=== PATIENT | male | born 1950 | race Caucasian/White ===

== ENCOUNTER 2016-08-03 18:26 | Emergency (ER) | payer MEDICARE, OTHER ==
[~2016-08-03 18:26] MED LIST: ADVA250A INH; ALBU0.086 INH; CLON.2 PO; CREON6 PO; FLOR250C PO; FLUO20TA20 PO; LACT20SO4 PO; NICO7DIS2 TD; SPIR50TA PO; TAB-TAB PO; TRAZ50TA4 PO
[2016-08-03 19:44] VITALS: BP 97/51; PULSE 57; RESP 18; TEMP 98.4; O2SAT 98
--- NOTE | 2016-08-03 19:44 | PD ---
HPI Chief Complaint: Psychiatric Symptoms Time Seen by Provider: 19:28 Travel History International Travel<30 days: No Contact w/Intl Traveler<30days: No Traveled to known affect area: No History of Present Illness HPI This is a 66-year-old male who reports a history of hypertension, hepatitis C with cirrhosis, COPD, IV drug abuse, he presents under Hsu act initiated by the Police Department. According to his paperwork, "subject stated that he wants to kill himself and needs help." The patient reports that he has been feeling depressed for years, occasionally has thoughts of suicide. He reports that he has been abusing drugs, is frequently morphine and Dilaudid, for approximately 18 years. He reports that 2 days ago he overdosed on opiates and was brought to [facility]. He was discharged yesterday. He reports that today he called the police because he has been feeling depressed. The patient was initially brought to [facility] however because of his chronic medical conditions he was felt to be beyond their scope of care so he was brought here. The patient has areas of ecchymosis and scabbing on the forearms where he previously injected drugs. Last tetanus vaccination he claims was 2 days ago. He denies any homicidal ideation, hallucinations. He has no other complaints at this time. [facility] Past Medical History Arthritis: Yes Asthma: Yes Anxiety: Yes Depression: Yes Heart Rhythm Problems: Yes Cancer: No Cardiovascular Problems: No High Cholesterol: No Chest Pain: No Congestive Heart Failure: No Cirrhosis: Yes COPD: No Cerebrovascular Accident: No Diminished Hearing: No Endocrine: No Gastrointestinal Disorders: Yes GERD: Yes Genitourinary: No Headaches: Yes Hepatitis: Yes (HEP B AND C) Hiatal Hernia: No Hypertension: Yes Immune Disorder: No Musculoskeletal: Yes Neurologic: Yes (PREVIOUS sucarhnoidal brain bleeing - head trauma) Psychiatric: Yes Reproductive: No Respiratory: Yes (ASTHMA) Migraines: No Seizures: No Sleep Apnea: No Thyroid Disease: No Ulcer: No ?: Not Past Surgical History Abdominal Surgery: Yes (splenectomy) Cardiac Surgery: No Cholecystectomy: Yes Ear Surgery: No Endocrine Surgery: No Eye Surgery: Yes Genitourinary Surgery: No Gynecologic Surgery: No Joint Replacement: No Neurologic Surgery: Yes (CRANIOTOMY) Oral Surgery: Yes (TONSILLECTOMY) Pacemaker: No Thoracic Surgery: No Tonsillectomy: Yes Other Surgery: Yes (left foot 4th and 5th toe amputation) Social History Alcohol Use: No Tobacco Use: Yes Substance Use: No Allergies-Medications (Allergen,Severity, Reaction): Coded Allergies: Bactrim (Verified Allergy, Severe, Hives, 09/05/14) Cipro (Verified Allergy, Severe, RASH, 09/05/14) Reported Meds & Prescriptions Reported Meds & Active Scripts Active Reported Trazodone Hcl (Trazodone HCl) 50 Mg Tab 50 Mg PO Florastor (Saccharomyces Boulardii) 250 Mg Cap 250 Mg PO BID Fluoxetine (Fluoxetine HCl) 20MG Cap 20 Mg PO DAILY Catapres 0.2 mg (Clonidine HCl) 0.2 Mg Tab 0.2 Tab PO BID Creon (Amylase/Lipase/Protease) 6,000 Unit Cap 1 Cap PO TID Lactulose 30 Ml Syrp 15 Ml PO TID Nicotine 7 Mg/24 Hr Dis 1 Patch TD DAILY Advair Diskus 250/50 (Salmeterol Xinafoate/Fluticasone) 250 Mcg/50 Mcg Inhp 1 Puff INH DAILY Proventil Ud 0.083% (2.5 Mg/3 Ml) (Albuterol Sulfate) 2.5 Mg/3 Ml Inha 2.5 Mg INH DIRECTED Aldactone (Spironolactone) 50 Mg Tab 50 Mg PO DAILY Multivitamin (Multivitamins) 1 Tab Tab 1 Tab PO DAILY Review of Systems Except as stated in HPI: all other systems reviewed are Neg Physical Exam Narrative GENERAL: Disheveled appearing male in no acute distress, answering questions appropriately SKIN: Warm and dry. Areas of ecchymosis noted on the arms, some circular scabbing lesions noted as well. There is no induration or erythema of the skin , no proximal streaking, formation. HEAD: Atraumatic. Normocephalic. EYES: Pupils equal and round. No scleral icterus. No injection or drainage. ENT: No nasal bleeding or discharge. Mucous membranes pink and moist. NECK: Trachea midline. No JVD. CARDIOVASCULAR: Regular rate and rhythm. No murmur appreciated. RESPIRATORY: No accessory muscle use. Some wheezing noted bilaterally. GASTROINTESTINAL: Abdomen soft, distended consistent with ascites, linear surgical scar noted from previous splenomegaly per patient, hepatomegaly noted. MUSCULOSKELETAL: No obvious deformities. No clubbing. No cyanosis. No edema. NEUROLOGICAL: Awake and alert. No obvious cranial nerve deficits. Motor grossly within normal limits. Normal speech. PSYCHIATRIC: depressed mood; insight and judgment normal. Data Data Last Documented VS Vital Signs Date Time Temp Pulse Resp B/P Pulse Ox O2 Delivery O2 Flow Rate FiO2 08/03/16 20:12 97.6 54 18 117/65 96 Room Air Orders Complete Blood Count With Diff (08/03/16 19:16) Comprehensive Metabolic Panel (08/03/16 19:16) Psych Screen (08/03/16 19:16) Drug Screen, Random Urine (08/03/16 19:16) Alcohol (Ethanol) (08/03/16 19:16) Albuterol-Ipratropium Neb (Duoneb Neb) (08/03/16 19:45) Labs Laboratory Tests Test 08/03/16 19:45 White Blood Count 3.5 TH/MM3 Red Blood Count 4.02 MIL/MM3 Hemoglobin 12.3 GM/DL Hematocrit 36.2 % Mean Corpuscular Volume 90.1 FL Mean Corpuscular Hemoglobin 30.7 PG Mean Corpuscular Hemoglobin 34.1 % Concent Red Cell Distribution Width 17.5 % Platelet Count 45 TH/MM3 Mean Platelet Volume 10.0 FL Neutrophils (%) (Auto) 66.2 % Lymphocytes (%) (Auto) 20.2 % Monocytes (%) (Auto) 9.9 % Eosinophils (%) (Auto) 2.7 % Basophils (%) (Auto) 1.0 % Neutrophils # (Auto) 2.3 TH/MM3 Lymphocytes # (Auto) 0.7 TH/MM3 Monocytes # (Auto) 0.3 TH/MM3 Eosinophils # (Auto) 0.1 TH/MM3 Basophils # (Auto) 0.0 TH/MM3 CBC Comment AUTO DIFF Differential Comment AUTO DIFF CONFIRMED Platelet Estimate LOW Platelet Morphology Comment ENLARGED Red Cell Morphology Comment NORMAL Sodium Level 136 MEQ/L Potassium Level 3.5 MEQ/L Chloride Level 102 MEQ/L Carbon Dioxide Level 26.4 MEQ/L Anion Gap 8 MEQ/L Blood Urea Nitrogen 5 MG/DL Creatinine 0.74 MG/DL Estimat Glomerular Filtration 106 ML/MIN Rate Random Glucose 78 MG/DL Calcium Level 8.2 MG/DL Total Bilirubin 2.0 MG/DL Aspartate Amino Transf 159 U/L (AST/SGOT) Alanine Aminotransferase 47 U/L (ALT/SGPT) Alkaline Phosphatase 169 U/L Total Protein 6.8 GM/DL Albumin 2.5 GM/DL Urine Opiates Screen NEG Urine Barbiturates Screen NEG Urine Amphetamines Screen NEG Urine Benzodiazepines Screen NEG Urine Cocaine Screen NEG Urine Cannabinoids Screen NEG Ethyl Alcohol Level 118 MG/DL [facility] Medical Decision Making Medical Screen Exam Complete: Yes Emergency Medical Condition: Yes Medical Record Reviewed: Yes Differential Diagnosis Substance-induced disorder, opiate withdrawal, acute psychosis, major depressive disorder, malingering, depressive disorder not otherwise specified Narrative Course 66-year-old male with history of hepatitis C with cirrhosis, long-standing history of IV drug abuse, presents under [facility] for evaluation of depression and suicidal thoughts. On examination he has areas of ecchymosis and scabbing on the arm secondary to IV drug abuse with no evidence of infectious changes. He also has wheezing which is likely chronic secondary to his COPD, denies any acute dyspnea. He'll be given a DuoNeb treatment here. Records from his recent visit to [facility] have been requested. Basic lab work has been ordered. Mental health screening discussed with the patient. Psychiatric screen ordered. Lab work has been reviewed. Platelet count 45, bilirubin 2.0, AST 159, albumin 2.5 consistent with history of cirrhosis. Drug screen is negative. Alcohol level is 118. The patient is medically cleared for psychiatric disposition. Diagnosis Primary Impression: Depression Qualified Code: F32.9 - Depression, unspecified depression type Additional Impression: Opiate abuse, continuous Bonifacio Caruso Aug 03, 2016 19:44 Bonifacio Caruso Aug 03, 2016 19:44
[2016-08-03] MEDS ORDERED: RESP: ALBUTEROL 2.5 MG/IPRATROPIUM 0.5 MG NEB (SCH) INH ONE (19:45)
[2016-08-03 20:01] LABS: AUTOMATED NEUTROPHIL # 2.3 TH/MM3 (1.8-7.7); EOSINOPHIL # 0.1 TH/MM3 (0-0.4); EOSINOPHIL % 2.7 % (0.0-4.0); HEMATOCRIT 36.2 % (39.0-51.0); LYMPH % 20.2 % (9.0-44.0); LYMPHOCYTE # 0.7 TH/MM3 (1.0-4.8); MEAN CELL VOLUME 90.1 FL (80.0-100.0); MEAN CORPUSCULAR HEMOGLOBIN 30.7 PG (27.0-34.0); MEAN CORPUSCULAR HGB CONC 34.1 % (32.0-36.0); MONO % 9.9 % (0.0-8.0); NEUT % 66.2 % (16.0-70.0); PLATELET COUNT 45 TH/MM3 (150-450); RED BLOOD COUNT 4.02 MIL/MM3 (4.50-5.90); RED CELL DISTRIBUTION WIDTH 17.5 % (11.6-17.2); WHITE BLOOD COUNT 3.5 TH/MM3 (4.0-11.0)
[2016-08-03 20:05] LABS: HEMO FLAGS AUTO DIFF
[2016-08-03 20:10] LABS: AMPHETAMINE, URINE NEG (NEG); BARBITURATES, URINE NEG (NEG); COCAINE, URINE NEG (NEG); PLATELET ESTIMATE SMEAR LOW (NORMAL); PLATELET MORPHOLOGY ENLARGED (NORMAL)
[2016-08-03 20:11] LABS: SCAN/DIFF AUTO DIFF CONFIRMED
[2016-08-03 20:12] VITALS: BP 117/65; PULSE 54; RESP 18; TEMP 97.6; O2SAT 96
[2016-08-03 20:22] LABS: ANION GAP 8 MEQ/L (5-15)
[2016-08-03 20:25] LABS: ALKALINE PHOSPHATASE 169 U/L (45-117); ALT (GPT) 47 U/L (12-78); AST (GOT) 159 U/L (15-37); BICARBONATE 26.4 MEQ/L (21.0-32.0); BLOOD UREA NITROGEN 5 MG/DL (7-18); CHLORIDE 102 MEQ/L (98-107); GLOMERULAR FILTRATION RATE 106 ML/MIN (>89); POTASSIUM 3.5 MEQ/L (3.5-5.1); SODIUM (NA) 136 MEQ/L (136-145)
[2016-08-03 20:30] VITALS: BP 113/55; PULSE 62; RESP 18; O2SAT 95
--- NOTE | 2016-08-03 20:34 | PD ---
Physical Exam Date Seen by Provider: Aug 03, 2016 Narrative Patient was sent to us from [facility] for medical clearance regarding alcohol and drug abuse. They felt that he was too sick for their pod and sent him to us. He actually started at [facility] but was sent here for medical clearance because of his chronic medical problems related to his chronic alcoholism. Patient reports 3 overdoses in the last week. He has required some sort of resuscitation as a result of at least one of these overdoses. Patient states that he does not want to and is requesting help with his substance abuse. The substance abuse is an ongoing problem that has become acutely worse this past week which is severe in that he required resuscitation. Data Data Last Documented VS Vital Signs Date Time Temp Pulse Resp B/P Pulse Ox O2 Delivery O2 Flow Rate FiO2 08/03/16 20:12 97.6 54 18 117/65 96 Room Air Orders Complete Blood Count With Diff (08/03/16 19:16) Comprehensive Metabolic Panel (08/03/16 19:16) Psych Screen (08/03/16 19:16) Drug Screen, Random Urine (08/03/16 19:16) Alcohol (Ethanol) (08/03/16 19:16) Albuterol-Ipratropium Neb (Duoneb Neb) (08/03/16 19:45) Labs Laboratory Tests Test 08/03/16 19:45 White Blood Count 3.5 TH/MM3 Red Blood Count 4.02 MIL/MM3 Hemoglobin 12.3 GM/DL Hematocrit 36.2 % Mean Corpuscular Volume 90.1 FL Mean Corpuscular Hemoglobin 30.7 PG Mean Corpuscular Hemoglobin 34.1 % Concent Red Cell Distribution Width 17.5 % Platelet Count 45 TH/MM3 Mean Platelet Volume 10.0 FL Neutrophils (%) (Auto) 66.2 % Lymphocytes (%) (Auto) 20.2 % Monocytes (%) (Auto) 9.9 % Eosinophils (%) (Auto) 2.7 % Basophils (%) (Auto) 1.0 % Neutrophils # (Auto) 2.3 TH/MM3 Lymphocytes # (Auto) 0.7 TH/MM3 Monocytes # (Auto) 0.3 TH/MM3 Eosinophils # (Auto) 0.1 TH/MM3 Basophils # (Auto) 0.0 TH/MM3 CBC Comment AUTO DIFF Differential Comment AUTO DIFF CONFIRMED Platelet Estimate LOW Platelet Morphology Comment ENLARGED Red Cell Morphology Comment NORMAL Sodium Level 136 MEQ/L Potassium Level 3.5 MEQ/L Chloride Level 102 MEQ/L Carbon Dioxide Level 26.4 MEQ/L Anion Gap 8 MEQ/L Blood Urea Nitrogen 5 MG/DL Creatinine 0.74 MG/DL Estimat Glomerular Filtration 106 ML/MIN Rate Random Glucose 78 MG/DL Calcium Level 8.2 MG/DL Total Bilirubin 2.0 MG/DL Aspartate Amino Transf 159 U/L (AST/SGOT) Alanine Aminotransferase 47 U/L (ALT/SGPT) Alkaline Phosphatase 169 U/L Total Protein 6.8 GM/DL Albumin 2.5 GM/DL Urine Opiates Screen NEG Urine Barbiturates Screen NEG Urine Amphetamines Screen NEG Urine Benzodiazepines Screen NEG Urine Cocaine Screen NEG Urine Cannabinoids Screen NEG Ethyl Alcohol Level 118 MG/DL MDM Supervised Visit with [facility]: Yes Narrative Course CBC & BMP Diagram 08/03/16 19:45 Total bilirubin is 2.0, AST 159, ALT 47, alkaline phosphatase 169. Tox screen is negative. Alcohol level is 118. Patient is medically clear for psychiatric evaluation. Diagnosis Primary Impression: Depression Qualified Code: F32.9 - Depression, unspecified depression type Additional Impression: Opiate abuse, continuous Condition: Stable Sonia Centeno MD Aug 03, 2016 20:34
[2016-08-03] MEDS ORDERED: CLON0.2T PO (21:24)
[2016-08-03] MEDS ORDERED: FLUO20CA4 PO (21:24)
[2016-08-03] MEDS ORDERED: VENTAER INH (21:24)
[2016-08-03] MEDS ORDERED: TRAZ50TA12 PO (21:24)
[2016-08-03 21:37] LABS: BLOOD, URINE NEG (NEG); GLUCOSE,URINE NEG (NEG); KETONE, URINE NEG (NEG); NITRITE,URINE NEG (NEG); PH, URINE 6.5 (5.0-8.5); URINE COLOR YELLOW (YELLW/STRAW)
[2016-08-03 21:40] VITALS: BP 110/62; PULSE 65; RESP 18; O2SAT 94
[2016-08-03 22:06] LABS: COMMENT (UR) CULT NOT INDICATED; CULTURE IF INDICATED CULT NOT INDICATED
[2016-08-03 22:26] VITALS: BP 108/60; PULSE 65; RESP 18; O2SAT 95
[2016-08-03 23:04] VITALS: BP 153/80; PULSE 59; RESP 18; O2SAT 96
[2016-08-03] MEDS ORDERED: LORazepam 2 MG TAB PO ONE (23:45)
[2016-08-04] VITALS (8 sets, daily range): BP systolic 113–165; BP diastolic 63–81; PULSE 53–65; RESP 16–21; TEMP 97.6–97.8; O2SAT 94–98
[2016-08-04] MEDS ORDERED: LORazepam 2 MG/ML VIAL IV PUSH ONE (09:15)
--- NOTE | 2016-08-04 13:17 | PD.CONS ---
Provisional Diagnosis Admission Date [place] I. Substance induced mood disorder, alcohol and opiates use disorder, history of depression [place] II. Deferred [place] III. Hepatitis C, cirrhosis, COPD [place] IV. Chronic medical illnesses, IV drug user [place] V. 55 History of Present Illness Service Psychiatry Consult Requested By Primary Care Physician Unknown HPI The patient is a 66-year-old man, domiciled with his brother in the [place], unemployed, single, with psychiatric history of depression, 2 previous psychotic hospitalizations, suicide attempts by overdosing, IV opiate user, alcohol use disorder, with medical history of hypertension, hepatitis C with cirrhosis, COPD, who presents under Hsu act initiated by the Police Department. According to his paperwork, "subject stated that he wants to kill himself and needs help." The patient reports that he has been feeling depressed for years, occasionally has thoughts of suicide. He reports that he has been abusing drugs, is frequently morphine and Dilaudid, for approximately 18 years. He reports that 2 days ago he overdosed on opiates and was brought to [facility]. He was discharged yesterday. He reports that today he called the police because he has been feeling depressed. The patient was initially brought to [facility] however because of his chronic medical conditions he was felt to be beyond their scope of care so he was brought here for medical clearance. Patient was consulted to psychiatry due to suicidal ideation. However, with psychotic evaluation patient is found calm, cooperative he seems to be in acute withdrawal of opiates and alcohol. Patient states that all he wants is help with his addiction problem. He reports ongoing depression described as daily sadness, helplessness, worthlessness, generalized pessimism, low self-esteem, but the patient denies suicidal ideation. He says that he doesn't want to "I just want to get better and go back home". He denies homicidal ideation, he denies visual and auditory hallucinations. Patient says that he is motivated to go to a detox and then to rehabilitation program. He reports daily use of heroine, 4-6 bags, sometimes Dilaudid, daily use of alcohol 10-15 beers. Review of Systems Constitutional: COMPLAINS OF: Fatigue Endocrine: DENIES: Heat/cold intolerance, Polydipsia, Polyuria, Polyphagia Eyes: COMPLAINS OF: Blurred vision, DENIES: Diplopia, Eye inflammation, Eye pain, Vision loss, Photosensitivity, Double Vision Ears, nose, mouth, throat: DENIES: Tinnitus, Hearing loss, Vertigo, Nasal discharge, Oral lesions, Throat pain, Hoarseness, Ear Pain, Running Nose, Epistaxis, Sinus Pain, Toothache, Odynophagia Genitourinary: DENIES: Sexual dysfunction, Urinary frequency, Urinary incontinence, Urgency, Hematuria, Dysuria, Nocturia, Penile Discharge, Testicular Pain, Testicular Swelling Musculoskeletal: COMPLAINS OF: Muscle aches, DENIES: Joint pain, Stiffness, Joint Swelling, Back pain, Neck pain Integumentary: DENIES: Abnormal pigmentation, Nail changes, Pruritus, Rash Hematologic/lymphatic: DENIES: Bruising, Lymphadenopathy Immunologic/allergic: DENIES: Eczema, Urticaria Neurologic: DENIES: Abnormal gait, Headache, Localized weakness, Paresthesias, Seizures, Speech Problems, Tremor, Poor Balance Psychiatric: COMPLAINS OF: Depression, DENIES: Anxiety, Confusion, Mood changes, Hallucinations, Agitation, Suicidal Ideation, Homicidal Ideation, Delusions Past Family Social History Coded Allergies: Bactrim (Verified Allergy, Severe, Hives, 09/05/14) Cipro (Verified Allergy, Severe, RASH, 09/05/14) Reported Medications Trazodone 50 Mg Tab50 Mg PO HS #30 TAB Ref 0 08/03/16 Fluoxetine 20 Mg Cap20 Mg PO DAILY #30 CAP Ref 0 08/03/16 Clonidine 0.2 Mg Tab0.2 Mg PO TID #60 TAB Ref 0 08/03/16 Albuterol 18 GM Inh (Ventolin Hfa 18 GM Inh)90 Mcg/Act Aer2 Puff INH Q4-6H PRN ( SHORTNESS OF BREATH) #1 INHALER Ref 0 08/03/16 Family History He denies Social History Patient was born and raised in [place], he has been living in the [place] with his brother for several years, , unemployed, he is on SSI, he has two- year college degree Patient's Strengths (min. 2) Good insight, contemplation stage Physical Exam Mild bilateral hand shaking, Vital Signs Vital Signs Date Time Temp Pulse Resp B/P Pulse Ox O2 Delivery O2 Flow Rate FiO2 08/04/16 11:00 97.8 65 18 124/69 97 Room Air Lab Results BAL 118, toxicology negative Mental Status Examination Appearance man, who seems to be chronically ill, or to than his stated age, pronounced anasarca, he is calm and cooperative Speech: Unremarkable Orientation: x3 Memory: Unremarkable Thought Process: Logical Thought Content: Unremarkable Hallucination Type: None Suicidal Ideation: No Previous Suicide Attempts: No Homicidal Ideation: No Previous Homicide Attempts: No Judgment: WNL Affect: Sad Mood: Appropriate Motor Activity: Normal gait Assessment & Plan Problem List: (1) Alcohol abuse with alcohol-induced mood disorder Assessment & Plan: On psychiatric evaluation is within the patient reports mild to moderate depressive symptoms that are directly related with underlying acute medical conditions and also to continues use of IV opiates and alcohol. However, patient denies suicidal and homicidal ideation, he denies visual and auditory hallucinations. Patient is logical, coherent and relevant. There is no evidence of paranoia, delusions, agitation or aggressive behavior. Patient reports motivation to be discharged to a detox/rehabilitation program to treat his addiction problem. Patient does not meet criteria for involuntary psychiatric admission. Extensive psychoeducation, supportive motivation provided. Ativan 2 mg IV were ordered one dose to treat alcohol withdrawal symptoms. Patient will be placed in a Act list. Hsu act will be lifted. ICD Code: F10.14 Assessment & Plan Estimated LOS: Donis Solorzano MD Aug 04, 2016 13:17
[2016-08-04] MEDS ORDERED: LORazepam 2 MG TAB PO ONE (15:30)
== END 2016-08-04 22:04 | disposition home or self-care (01) ==
LOC: NEPC 18:26 → NEPJ 08-04 22:04
DX: F10.14 Alcohol abuse with alcohol-induced mood disorder (principal); F32.9 Major depressive disorder, single episode, unspecified; B19.20 Unspecified viral hepatitis C without hepatic coma; K74.60 Unspecified cirrhosis of liver; J44.9 Chronic obstructive pulmonary disease, unspecified; J45.909 Unspecified asthma, uncomplicated; I10 Essential (primary) hypertension; K21.9 Gastro-esophageal reflux disease without esophagitis; Z72.0 Tobacco use
CPT/HCPCS: 80053; 80307; 81001; 85025; 94664; 96374; 99285; J2060

== ENCOUNTER 2016-08-05 11:39 | Emergency (ER) | payer OTHER ==
[~2016-08-05] VITALS: Ht 182.9 cm; Wt 93.0 kg
[~2016-08-05 11:39] MED LIST changes: -ADVA250A INH; -ALBU0.086 INH; -CLON.2 PO; +CLON0.2T PO; -CREON6 PO; -FLOR250C PO; +FLUO20CA4 PO; -FLUO20TA20 PO; -LACT20SO4 PO; -NICO7DIS2 TD; -SPIR50TA PO; -TAB-TAB PO; +TRAZ50TA12 PO; -TRAZ50TA4 PO; +VENTAER INH
[2016-08-05 11:54] VITALS: BP 114/74; PULSE 79; RESP 20; TEMP 98.1; O2SAT 99
--- NOTE | 2016-08-05 11:57 | PD ---
HPI Chief Complaint: Abdominal Pain Time Seen by Provider: 11:57 (Shaan Connors) Time Seen by Provider: 14:00 (Yevgeniy Neri MD) Travel History International Travel<30 days: No Contact w/Intl Traveler<30days: No Traveled to known affect area: No (Shaan Connors) International Travel<30 days: No Contact w/Intl Traveler<30days: No Traveled to known affect area: No (Yevgeniy Neri MD) History of Present Illness HPI 66-year-old male with history of chronic EtOH abuse as well as reported heroin use. Patient was here 2 days ago with complaints of inability to quit drinking and suicidal ideation. Patient has similar complaints today. Patient denies acute pain, fever, chills, or other symptoms. Patient is allergic to Bactrim and Cipro. (Shaan Connors) HPI This is a 66-year-old male with a very long history of alcoholism and multiple medical problems which are at least in part related to his alcohol abuse. At this point the patient states that he is tired, has physical and emotional pain and threatens to kill himself if he is released. This physician notes the patient was seen within the last [address] Magallanes and discharge because of his continued alcohol abuse. Patient has long-standing liver cirrhosis due to his alcoholism. He has multiple medical problems in addition to that. However, this physician does not feel he has a primary psychiatric disorder that is independent of his alcohol abuse. Additionally, this physician does not feel it is appropriate to get into the patient's threats to harm himself if he is not admitted. In fact, it is counter therapeutic to enable the patient to continue to drink like this and responded to his wishes for housing, food, etc. This physician is well aware of the patient's medical history and the possibility that he might act out if he does not get his way. However, it remains counter therapeutic to give into his manipulations when he has demonstrated no willingness to stop drinking. (Yevgeniy Neri MD) [facility] Past Medical History Arthritis: Yes Asthma: Yes Anxiety: Yes Depression: Yes (PTDS) Heart Rhythm Problems: Yes Cancer: No Cardiovascular Problems: No High Cholesterol: No Chest Pain: No Congestive Heart Failure: No Cirrhosis: Yes COPD: No Cerebrovascular Accident: No Diminished Hearing: No Endocrine: No Gastrointestinal Disorders: Yes GERD: Yes Genitourinary: No Headaches: Yes Hepatitis: Yes (HEP B AND C) Hiatal Hernia: No Hypertension: Yes Immune Disorder: No Musculoskeletal: Yes Neurologic: Yes (PREVIOUS sucarhnoidal brain bleeing - head trauma) Psychiatric: Yes Reproductive: No Respiratory: Yes (ASTHMA) Migraines: No Seizures: No Sleep Apnea: No Thyroid Disease: No Ulcer: No (Shaan Connors) Past Surgical History Abdominal Surgery: Yes (splenectomy) Cardiac Surgery: No Cholecystectomy: Yes Ear Surgery: No Endocrine Surgery: No Eye Surgery: Yes Genitourinary Surgery: No Gynecologic Surgery: No Joint Replacement: No Neurologic Surgery: Yes (CRANIOTOMY) Oral Surgery: Yes (TONSILLECTOMY) Pacemaker: No Thoracic Surgery: No Tonsillectomy: Yes Other Surgery: Yes (left foot 4th and 5th toe amputation) (Shaan Connors) Social History Alcohol Use: Yes (ETOH daily) Tobacco Use: Yes Substance Use: Yes (fentynal, dilaudid, morphine) (Shaan Connors) Allergies-Medications (Allergen,Severity, Reaction): Coded Allergies: Bactrim (Verified Allergy, Severe, Hives, 08/05/16) Cipro (Verified Allergy, Severe, RASH, 08/05/16) Reported Meds & Prescriptions Reported Meds & Active Scripts Active Reported Fluoxetine (Fluoxetine HCl) 20 Mg Cap 20 Mg PO DAILY Clonidine (Clonidine HCl) 0.2 Mg Tab 0.2 Mg PO TID Ventolin Hfa 18 GM Inh (Albuterol Sulfate) 90 Mcg/Act Aer 2 Puff INH Q4-6H PRN (Yevgeniy Neri MD) Review of Systems Except as stated in HPI: all other systems reviewed are Neg General / Constitutional: No: Fever Eyes: No: Visual changes HENT: No: Headaches Cardiovascular: No: Chest Pain or Discomfort Respiratory: No: Shortness of Breath Gastrointestinal: No: Abdominal Pain Genitourinary: No: Dysuria Musculoskeletal: No: Pain Skin: No Rash Neurologic: No: Weakness Psychiatric: No: Depression Endocrine: No: Polydipsia Hematologic/Lymphatic: No: Easy Bruising (Shaan Connors) ROS Limitations: Clinical Condition General / Constitutional: No: Fever Eyes: No: Visual changes HENT: No: Headaches Cardiovascular: No: Chest Pain or Discomfort Respiratory: No: Shortness of Breath Gastrointestinal: No: Abdominal Pain Genitourinary: No: Dysuria Musculoskeletal: No: Pain Skin: No Rash Neurologic: No: Weakness Psychiatric: No: Depression Endocrine: No: Polydipsia Hematologic/Lymphatic: No: Easy Bruising (Yevgeniy Neri MD) Physical Exam Narrative GENERAL: Patient appears in no acute distress. SKIN: Warm and dry. Normal color. Poor turgor. Mild tenting of the skin noted. Patient has multiple old ecchymosis from recent IV sticks and blood draws. HEAD: Atraumatic. Normocephalic. EYES: Pupils equal and round. No scleral icterus. No injection or drainage. ENT: No nasal bleeding or discharge. Mucous membranes pink and dry. Pharynx is clear. Airway is patent. NECK: Trachea midline. No JVD. Supple and nontender. CARDIOVASCULAR: Regular rate and rhythm. No murmurs gallops or rubs. RESPIRATORY: No accessory muscle use. Clear to auscultation. Breath sounds equal bilaterally. GASTROINTESTINAL: Abdomen soft, non-tender, nondistended. Enlarged liver noted which is nontender. Patient is status post splenectomy. MUSCULOSKELETAL: Extremities without clubbing, cyanosis, or edema. No obvious deformities. NEUROLOGICAL: Awake and alert. No obvious cranial nerve deficits. Motor grossly within normal limits. Five out of 5 muscle strength in the arms and legs. Normal speech. PSYCHIATRIC: Appropriate mood and affect; insight and judgment normal. (Shaan Connors) Exam Limitations: Clinical Condition (Yevgeniy Neri MD) Data Data Last Documented VS Vital Signs Date Time Temp Pulse Resp B/P Pulse Ox O2 Delivery O2 Flow Rate FiO2 08/05/16 11:54 98.1 79 20 114/74 99 (Yevgeniy Neri MD) Orders Complete Blood Count With Diff (08/05/16 12:11) Comprehensive Metabolic Panel (08/05/16 12:11) Iv Access Insert/Monitor (08/05/16 12:11) Psych Screen (08/05/16 12:11) Alcohol (Ethanol) (08/05/16 12:11) Prothrombin Time / Inr (Pt) (08/05/16 12:11) Act Partial Throm Time (Ptt) (08/05/16 12:11) Sodium Chlor 0.9% 1000 Ml Inj (Ns 1000 M (08/05/16 12:15) (Yevgeniy Neri MD) Labs Laboratory Tests Test 08/05/16 13:00 White Blood Count 2.4 TH/MM3 Red Blood Count 4.40 MIL/MM3 Hemoglobin 13.4 GM/DL Hematocrit 40.0 % Mean Corpuscular Volume 91.0 FL Mean Corpuscular Hemoglobin 30.4 PG Mean Corpuscular Hemoglobin 33.5 % Concent Red Cell Distribution Width 17.8 % Platelet Count 35 TH/MM3 Mean Platelet Volume 9.4 FL Neutrophils (%) (Auto) 73.4 % Lymphocytes (%) (Auto) 13.0 % Monocytes (%) (Auto) 11.4 % Eosinophils (%) (Auto) 1.8 % Basophils (%) (Auto) 0.4 % Neutrophils # (Auto) 1.8 TH/MM3 Lymphocytes # (Auto) 0.3 TH/MM3 Monocytes # (Auto) 0.3 TH/MM3 Eosinophils # (Auto) 0.0 TH/MM3 Basophils # (Auto) 0.0 TH/MM3 CBC Comment AUTO DIFF Differential Comment AUTO DIFF CONFIRMED Platelet Estimate LOW Platelet Morphology Comment NORMAL Ovalocytes 1+ Prothrombin Time 13.8 SEC Prothromb Time International 1.2 RATIO Ratio Activated Partial 25.0 SEC Thromboplast Time Sodium Level 137 MEQ/L Potassium Level 3.8 MEQ/L Chloride Level 103 MEQ/L Carbon Dioxide Level 28.3 MEQ/L Anion Gap 6 MEQ/L Blood Urea Nitrogen 10 MG/DL Creatinine 0.68 MG/DL Estimat Glomerular Filtration 117 ML/MIN Rate Random Glucose 121 MG/DL Calcium Level 8.5 MG/DL Total Bilirubin 3.0 MG/DL Aspartate Amino Transf 148 U/L (AST/SGOT) Alanine Aminotransferase 46 U/L (ALT/SGPT) Alkaline Phosphatase 166 U/L Total Protein 7.1 GM/DL Albumin 2.6 GM/DL Ethyl Alcohol Level LESS THAN 3 MG/DL (Yevgeniy Neri MD) [facility] Medical Decision Making Medical Screen Exam Complete: Yes Emergency Medical Condition: Yes Medical Record Reviewed: Yes Differential Diagnosis EtOH abuse. Polysubstance abuse. Suicidal ideation. Narrative Course Patient is medically stable at time of exam. Psychiatric labs ordered per protocol. Patient is given 1 L of normal saline IV bolus. CBC shows leukopenia of 2.4. RBC is 4.4. Hemoglobin is 13.4. Hematocrit is 40. Platelets are low at 35. CMP shows normal electrolytes. Random glucose 121. Total bilirubin 3.0. AST is 148. ENT is 46. Alkaline phosphatase is 166. Albumin is 2.6. Coagulation studies shows a PT of 13.8, and INR 1.2. Tox screen shows serum alcohol less than 3. Patient's labs were discussed with Dr. Ellsworth, and previous labs are reviewed. Patient has chronic leukopenia and thrombocytopenia secondary to his chronic liver disease. He is felt medically stable for psychiatric evaluation. Patient was seen by the psychiatrist in the emergency department and felt to be psychiatrically stable and not suitable for inpatient admission. Patient will be discharged with referral to [facility]. Patient is encouraged to go to their outpatient services for his EtOH abuse. ( Shaan Connors) Differential Diagnosis Alcohol dependence. (Yevgeniy Neri MD) Diagnosis Primary Impression: Alcohol abuse with alcohol-induced mood disorder Additional Impressions: Leukopenia Qualified Code: D70.8 - Other neutropenia Thrombocytopenia Medical clearance for psychiatric admission Referrals: [facility] Patient Instructions: Abuse of Alcohol (ED), General Instructions Additional Instructions: Patient was seen by the psychiatrist in the emergency department and felt to be psychiatrically stable and not suitable for inpatient admission. Patient will be discharged with referral to [facility]. Patient is encouraged to go to their outpatient services for his EtOH abuse. Med/Other Pt SpecificInfo: No Meds Exist/No RX given (Shaan Connors) Disposition: 01 DISCHARGE HOME Condition: Stable Shaan Connors Aug 05, 2016 11:57 Yevgeniy Neri MD Aug 05, 2016 14:59
[2016-08-05] MEDS ORDERED: SODIUM CHLOR 0.9% 1000 ML INJ 1,000 ML IV ONE (12:15)
[2016-08-05 13:12] LABS: AUTOMATED NEUTROPHIL # 1.8 TH/MM3 (1.8-7.7); BASOPHIL % 0.4 % (0.0-2.0); EOSINOPHIL % 1.8 % (0.0-4.0); LYMPHOCYTE # 0.3 TH/MM3 (1.0-4.8); MEAN CORPUSCULAR HEMOGLOBIN 30.4 PG (27.0-34.0); MEAN CORPUSCULAR HGB CONC 33.5 % (32.0-36.0); MONO % 11.4 % (0.0-8.0); NEUT % 73.4 % (16.0-70.0); PLATELET COUNT 35 TH/MM3 (150-450); RED CELL DISTRIBUTION WIDTH 17.8 % (11.6-17.2); WHITE BLOOD COUNT 2.4 TH/MM3 (4.0-11.0)
[2016-08-05 13:16] LABS: HEMO FLAGS AUTO DIFF
[2016-08-05 13:23] LABS: INTERNATIONAL NORMALIZED RATIO 1.2 RATIO; PROTHROMBIN TIME - PATIENT 13.8 SEC (9.8-11.6)
[2016-08-05 13:26] LABS: ANION GAP 6 MEQ/L (5-15); AST (GOT) 148 U/L (15-37); BICARBONATE 28.3 MEQ/L (21.0-32.0); BLOOD UREA NITROGEN 10 MG/DL (7-18); CHLORIDE 103 MEQ/L (98-107); GLOMERULAR FILTRATION RATE 117 ML/MIN (>89); POTASSIUM 3.8 MEQ/L (3.5-5.1); SODIUM (NA) 137 MEQ/L (136-145)
[2016-08-05 13:31] LABS: ALKALINE PHOSPHATASE 166 U/L (45-117); ALT (GPT) 46 U/L (12-78)
[2016-08-05 13:45] LABS: OVALOCYTES 1+ (NORMAL); PLATELET ESTIMATE SMEAR LOW (NORMAL); PLATELET MORPHOLOGY NORMAL (NORMAL); SCAN/DIFF AUTO DIFF CONFIRMED
== END 2016-08-05 14:55 | disposition home or self-care (01) ==
LOC: NEPC 11:39
DX: F10.10 Alcohol abuse, uncomplicated (principal); D72.819 Decreased white blood cell count, unspecified; D69.6 Thrombocytopenia, unspecified; R45.851 Suicidal ideations; J45.909 Unspecified asthma, uncomplicated; F32.9 Major depressive disorder, single episode, unspecified; K21.9 Gastro-esophageal reflux disease without esophagitis; I10 Essential (primary) hypertension
CPT/HCPCS: 80053; 80307; 85025; 85610; 85730; 99283; J7030